=== PATIENT | male | born 1980 | race Asian ===

== ENCOUNTER 2021-03-10 10:29 | Emergency (ER) | payer BC ==
--- NOTE | 2021-03-10 10:30 | EDM.PDOC ---
ED HPI GENERAL MEDICAL PROBLEM - General Stated Complaint: EAR INFECTION Time Seen by Provider: 03/10/21 10:32 Source of Information: Reports: Patient History Limitations: Reports: No Limitations - History of Present Illness INITIAL COMMENTS - FREE TEXT/NARRATIVE: HISTORY AND PHYSICAL: History of present illness: Patient is a 40-year-old male who presents to the emergency room with complaints of left ear pain. He states he has had discomfort for approximately 3 weeks. Last week he was seen at the walk-in clinic and provided with Ciprodex drops. He feels like there is "so much drainage" in the ear canal that the drops are not getting into his ear. He has been using Q-tips to try to remove the drainage, increases the pain. Patient denies any fever, chills, headache, change in vision, syncope or near syncope. Denies any chest pain, back pain, shortness of breath or cough. Denies any GI or symptoms. Patient has been eating and drinking appropriately. Review of systems: As per history of present illness and below otherwise all systems reviewed and negative. Past medical history: As per history of present illness and as reviewed below otherwise noncontributory. Surgical history: As per history of present illness and as reviewed below otherwise noncontributory. Social history: See social history for further information Family history: As per history of present illness and as reviewed below otherwise noncontributory. Physical exam: General: Well developed and well nourished 40-year-old male. Alert and orientated x 3. Nontoxic in appearance and in no acute distress. Vital signs are stable and have been reviewed by me. Nursing notes were reviewed. HEENT: Atraumatic, normocephalic, pupils equal and reactive bilaterally, negative for conjunctival pallor or scleral icterus, mucous membranes moist, left ear has copious amounts of white drainage in the canal -unable to visualize the TM. Right TM is normal, no mastoid tenderness. No pain with pulling back on and off. Throat clear, neck supple, nontender, trachea midline. No drooling or trismus noted. No meningeal signs. No hot potato voice noted. Lungs: Clear to auscultation bilaterally. Normal work of breathing, no accessory muscles used. Heart: S1S2, regular rate and rhythm. No peripheral edema Abdomen: Soft, nondistended, nontender. Skin: Intact, warm, dry. No lesions or rashes noted. Hematologic: No petechiae or purpra. Mucosa appropriate color and normal nail bed color and refill. Extremities: Atraumatic, moves all extremities per self without difficulty or deficits. Neurovascular unremarkable. Neuro: Awake, alert, oriented. Cranial nerves II through XII unremarkable. Cerebellum unremarkable. Motor and sensory unremarkable throughout. Exam nonfocal. Psychiatric: Mood and affect are appropriate. Normal thought process. Answering questions appropriately. Notes: *This patient was seen and evaluated during the 2019 SARS-CoV-2 novel coronavirus pandemic period. Community viral transmission is ongoing at time of this encounter and the emergency department is operating under pandemic response procedures. I have talked with the patient about today's findings, in addition to providing specific details for plan of care. Reassessment at the time of disposition demonstrates that the patient is in no acute distress. The patient is stable for discharge, counseling was provided and we discussed in great detail signs and symptoms that would prompt them to return to the Emergency Department. Medication, follow up and supportive care measures were reviewed and discussed. Voices understanding and is agreeable to plan of care. Denies any further questions or concerns at this time. Diagnostics: None Therapeutics: Augmentin, T#3 Prescription: Augmentin, Tylenol#3 (#15) Impression: Otitis Media Plan: 1. You were evaluated today on an emergent basis. Please take the antibiotic as prescribed. Avoid putting anything in the ear canal while your ear is healing. You can wipe away any drainage as needed. 2. You can alternate Tylenol and ibuprofen as needed for pain and fever management. 3. We encourage you to follow up with your primary care provider and/or ENT specialist in the next few days for re-evaluation and further care/management. 4. If your symptoms should worsen, new symptoms develop or any of the signs and symptoms we discussed should arise please return to the emergency room or call 911 (if needed). Definitive disposition and diagnosis as appropriate pending reevaluation and review of above. - Related Data Allergies Allergy/AdvReac Type Severity Reaction Status Date / Time No Known Allergies Allergy Verified 03/10/21 10:33 Home Meds: Home Meds Acetaminophen/Codeine [Tylenol with Codeine No.3 300MG/30MG] 1 tab PO Q4H PRN #15 tab 03/10/21 [Rx] Amoxicillin/Clavulanate K [Augmentin 875-125 MG] 1 tab PO BID 10 Days #20 tablet 03/10/21 [Rx] ED ROS ENT - Review of Systems Review Of Systems: Comprehensive ROS is negative, except as noted in HPI. ED EXAM, ENT - Physical Exam Exam: See Below (See dictation) Course - Vital Signs Last Recorded V/S: Last Vital Signs Temp 97.8 F 03/10/21 10:34 Pulse 77 03/10/21 10:34 Resp 20 03/10/21 10:34 BP 138/81 03/10/21 10:34 Pulse Ox 96 03/10/21 10:34 - Orders/Labs/Meds Meds: Medications Discontinued Medications Generic Name Dose Route Start Last Admin Trade Name Freq PRN Reason Stop Dose Admin Acetaminophen/Codeine Phosphate 1 tab 03/10/21 10:41 03/10/21 10:45 Acetaminophen/Codeine 300-30 Mg Tab PO 03/10/21 10:42 1 tab ONETIME ONE Administration Amoxicillin/Clavulanate Potassium 1 tab 03/10/21 10:41 03/10/21 10:45 Amoxicillin/Clavulanate K 875-125 Mg Tab PO 03/10/21 10:42 1 tab ONETIME ONE Administration Departure - Departure Time of Disposition: 10:49 Disposition: Home, Self-Care 01 Clinical Impression: Otitis media Qualifiers: Otitis media type: suppurative Chronicity: acute Laterality: left Recurrence: non-recurrent - Discharge Information Prescriptions: Amoxicillin/Clavulanate K [Augmentin 875-125 MG] 1 tab PO BID 10 Days #20 tablet Acetaminophen/Codeine [Tylenol with Codeine No.3 300MG/30MG] 1 tab PO Q4H PRN #15 tab PRN Reason: Pain (Severe 7-10) Instructions: Otitis Media, Adult, [id number] Additional Instructions: The following information is given to patients seen in the emergency department who are being discharged to home. This information is to outline your options for follow-up care. We provide all patients seen in our emergency department with a follow-up referral. The need for follow-up, as well as the timing and circumstances, are variable depending upon the specifics of your emergency department visit. If you don't have a primary care physician on staff, we will provide you with a referral. We always advise you to contact your personal physician following an emergency department visit to inform them of the circumstance of the visit and for follow-up with them and/or the need for any referrals to a consulting specialist. The emergency department will also refer you to a specialist when appropriate. This referral assures that you have the opportunity for follow-up care with a specialist. All of these measure are taken in an effort to provide you with optimal care, which includes your follow-up. Under all circumstances we always encourage you to contact your private physician who remains a resource for coordinating your care. When calling for follow-up care, please make the office aware that this follow-up is from your recent emergency room visit. If for any reason you are refused follow-up, please contact the [facility] Emergency Department at and asked to speak to the emergency department charge nurse. [facility] [address] [place] [address] [place] [address] Thank you for choosing the [facility] emergency department in [place] for your medical needs today. It was a pleasure caring for you. Today you were seen in the emergency department for ear pain/infection. 1. You were evaluated today on an emergent basis. Please take the antibiotic as prescribed. Avoid putting anything in the ear canal while your ear is healing. You can wipe away any drainage as needed. 2. You can alternate Tylenol and ibuprofen as needed for pain and fever manag ement. 3. We encourage you to follow up with your primary care provider and/or ENT specialist in the next few days for re-evaluation and further care/management. 4. If your symptoms should worsen, new symptoms develop or any of the signs and symptoms we discussed should arise please return to the emergency room or call 911 (if needed). Sepsis Event Note (ED) - Focused Exam Vital Signs: Vital Signs Temp Pulse Resp BP Pulse Ox 03/10/21 10:34 97.8 F 77 20 138/81 96
[2021-03-10] MEDS ORDERED: Acetaminophen/Codeine 300-30 MG Tab PO ONE (10:41)
[2021-03-10] MEDS ORDERED: Amoxicillin/Clavulanate K 875-125 MG Tab PO ONE (10:41)
== END 2021-03-10 10:56 | disposition home or self-care (01) ==
LOC: MW.ED 10:29
DX: H66.002 Acute suppurative otitis media without spontaneous rupture of ear drum, left ear (principal)
CPT/HCPCS: 99282; A9270

== ENCOUNTER 2021-04-28 07:17 | Emergency (ER) | payer BC ==
--- NOTE | 2021-04-28 08:18 | EDM.PDOC ---
ED HPI GENERAL MEDICAL PROBLEM - General Chief Complaint: ENT Problem Stated Complaint: LEFT EAR PAIN Time Seen by Provider: 04/28/21 07:34 - History of Present Illness INITIAL COMMENTS - FREE TEXT/NARRATIVE: CHIEF COMPLAINT(S): Ear drainage HISTORY OF PRESENT ILLNESS: This is a 41-year-old man with a past medical history of otitis media diagnosed in February 2021 with multiple antibiotic courses who comes to the emergency department with a chief complaint of ear drainage. The patient states that since February he has been experiencing ear drainage coming out of his left ear. He states that they initially gave him Ciprodex drops which did not help and then he was switched to Augmentin and completed a course which also did not help and then also just completed a cefdinir course. He states that he is experiencing what he describes as stuffiness of his left ear, ringing in his ear and crackling sensation in his ear. He denies any pain. He states that it is draining gobs of gunk which he describes as black coffee ground color, yellow, and white. He does have occasional sharp pain but not persistent pain. He denies any current pain at all. He denies any fever, chills, headache, blurry vision. He states that his hearing has decreased in this left ear. He states that he has been using Q-tips and peroxide to clean this area however it does not seem to help. REVIEW OF SYSTEMS: Constitutional: Denies fever, chills. Eyes: Denies eye pain Ears, Nose, Mouth, & Throat: Positive for ear drainage on the left side. Denies earache Cardiovascular: Denies chest pain Respiratory: Denies shortness of breath Skin:Denies a rash Neurological: Denies blurred vision, headache, numbness, tingling, weakness, trouble walking, speaking or swallowing. PAST MEDICAL HISTORY: As per history of present illness and as reviewed below o therwise noncontributory. SURGICAL HISTORY: As per history of present illness and as reviewed below otherwise noncontributory. SOCIAL HISTORY: As per history of present illness and as reviewed below otherwise noncontributory. FAMILY HISTORY: As per history of present illness and as reviewed below otherwise noncontributory. EXAMINATION OF ORGAN SYSTEMS/BODY AREAS: Constitutional: Blood pressure is 148/95, heart rate 64, respiratory rate 16 with an oxygen saturation of 96% on room air. Temperature 36.3 General: Young man who does not appear to be in acute distress Psychiatric: Appropriate mood and affect. Eyes: No scleral icterus or conjunctival erythema pupils were equal round and reactive to light. Extraocular movements intact. No vertical or horizontal nystagmus. ENMT: Moist mucous membranes. No pharyngeal erythema no trismus. No drooling. No stridor. No tenderness in the posterior auricular area. No pain when pulling on the ear. The tympanic membrane is not erythematous. In the 10-12 o'clock area of the tympanic membrane there is a whitish discoloration of the tympanic membrane and behind the tympanic membrane with some crusting. No obvious perforation. No purulent drainage. External auditory canal without any erythema or purulent drainage. Cardiovascular: Regular, rate, and rhythm. No gallops, murmurs, or rubs. Bilateral upper extremity pulses symmetric and intact. No peripheral edema. No JVD. Respiratory: Lungs clear to auscultation bilaterally. No wheezes, rales, or rhonchi. Skin: No lesions or abrasions. Neurological: AOx4. CN grossly intact. Strength 5/5 in bilateral upper and lower extremity. Sensation is intact bilaterally in upper and lower extremity. Gait appears normal. MEDICAL DECISION MAKING AND COURSE IN THE ED WITH INTERPRETATION/REVIEW OF DIAGNOSTIC STUDIES: This is a 41-year-old man with a past medical history of left ear drainage with multiple rounds of antibiotic treatment who comes to the emergency department with continued ear drainage and an examination revealing a whitish discoloration of the tympanic membrane with some crusting. At this time I do believe this is likely secondary to a cholesteatoma. There is not appear to be any effusion, erythema or external auditory canal irritation to suggest otitis media or otitis externa. I do not see any obvious tympanic membrane perforation. The patient's vitals are within normal limits and the patient is neurologically intact. At this time given the duration of the patient's symptoms I do believe the diagnosis is consistent with a cholesteatoma. I did discuss with the patient at this time that he does need an ENT referral for which we will fax over information for him. He will need to follow-up with ENT as these do require surgical management at times as they continue to grow and cause hearing loss. He was given strict return precautions. The patient was amenable to discharge at this time and had no further questions. DISPOSITION: The patient was discharged home in stable condition. The patient will follow up with ENT within 3 to 5 days CONDITION: Fair PROCEDURES: None FINAL IMPRESSION(S)/DIAGNOSES: 1. Chronic ear drainage likely secondary to cholesteatoma Asim Sanchez M.D. - Related Data Allergies Allergy/AdvReac Type Severity Reaction Status Date / Time No Known Allergies Allergy Verified 04/28/21 07:39 Home Meds: Home Meds . [No Known Home Meds] 04/28/21 [History] Past Medical History HEENT History: Reports: None Cardiovascular History: Reports: None Respiratory History: Reports: Asthma Gastrointestinal History: Reports: None Genitourinary History: Reports: None Musculoskeletal History: Reports: None Neurological History: Reports: None Psychiatric History: Reports: None Endocrine/Metabolic History: Reports: None Hematologic History: Reports: None Immunologic History: Reports: None Oncologic (Cancer) History: Reports: None Dermatologic History: Reports: None - Infectious Disease History Infectious Disease History: Reports: Chicken Pox - Past Surgical History Head Surgeries/Procedures: Reports: None HEENT Surgical History: Reports: None Cardiovascular Surgical History: Reports: None Respiratory Surgical History: Reports: None GI Surgical History: Reports: None Male Surgical History: Reports: None Endocrine Surgical History: Reports: None Neurological Surgical History: Reports: None Musculoskeletal Surgical History: Reports: Other (See Below) Other Musculoskeletal Surgeries/Procedures:: left ankle surgery Oncologic Surgical History: Reports: None Dermatological Surgical History: Reports: None Social & Family History - Family History Family Medical History: No Pertinent Family History - Tobacco Use Tobacco Use Status *Q: Never Tobacco User Second Hand Smoke Exposure: No - Recreational Drug Use Recreational Drug Use: No ED ROS GENERAL - Review of Systems Review Of Systems: See Below ED EXAM, GENERAL - Physical Exam Exam: See Below Course - Vital Signs Last Recorded V/S: Last Vital Signs Temp 36.3 C 04/28/21 07:37 Pulse 64 04/28/21 07:37 Resp 16 04/28/21 07:37 BP 148/95 H 04/28/21 07:37 Pulse Ox 96 04/28/21 07:37 Departure - Departure Time of Disposition: 08:17 Disposition: Home, Self-Care 01 Condition: Fair Clinical Impression: Cholesteatoma - Discharge Information *PRESCRIPTION DRUG MONITORING PROGRAM REVIEWED*: No *COPY OF PRESCRIPTION DRUG MONITORING REPORT IN PATIENT CRIS: No Referrals: PCP,None [Primary Care Provider] - Jun Castillo MD [Ordering Only Provider] - Forms: ED Department Discharge Additional Instructions: Mr. Carrillo you were evaluated today on an emergent basis. On an evaluation of your ear it appears that you have what is consistent with a cholesteatoma. As discussed I do not believe any further antibiotics or antifungals are needed to treat this any referral to an early education teacher is warranted as these likely require surgical treatment. If you have any worsening pain, fever, pain on the bone that we had discussed or any other concerns I would like you to return to the emergency department. Please follow-up within 3 to 5 days. Anna Barahona MD ENT Specialist [address] [place] [id number] The patient is informed of any results of their evaluation and diagnostic workup and all questions are answered. They are given discharge instructions and return precautions. The patient is stable for discharge. The patient states they understand and agree with the plan and that they will return if their symptoms get worse or if they have any new concerns. The following information is given to patients seen in the emergency department who are being discharged to home. This information is to outline your options for follow-up care. We provide all patients seen in our emergency department with a follow-up referral. The need for follow-up, as well as the timing and circumstances, are variable depending upon the specifics of your emergency department visit. If you don't have a primary care physician on staff, we will provide you with a referral. We always advise you to contact your personal physician following an emergency department visit to inform them of the circumstance of the visit and for follow-up with them and/or the need for any referrals to a consulting specialist. The emergency department will also refer you to a specialist when appropriate. This referral assures that you have the opportunity for follow-up care with a specialist. All of these measure are taken in an effort to provide you with optimal care, which includes your follow-up. Under all circumstances we always encourage you to contact your private physician who remains a resource for coordinating your care. When calling for follow-up care, please make the office aware that this follow-up is from your recent emergency room visit. If for any reason you are refused follow-up, please contact the [facility] Emergency Department at and asked to speak to the emergency department charge nurse. Sepsis Event Note (ED) - Evaluation Sepsis Screening Result: No Definite Risk - Focused Exam Vital Signs: Vital Signs Temp Pulse Resp BP Pulse Ox 04/28/21 07:37 36.3 C 64 16 148/95 H 96
== END 2021-04-28 08:35 | disposition home or self-care (01) ==
LOC: MW.ED 07:17
DX: H60.42 Cholesteatoma of left external ear (principal)
CPT/HCPCS: 99282